=== PATIENT | female | born 1955 | race Hispanic/Latino ===

== ENCOUNTER 2023-12-08 06:23 | Day surgery (SDC) | payer OTHER ==
[2023-12-03 12:15] VITALS: PULSE 73; RESP 18
[2023-12-03 12:35] LABS: BASOPHILS # (AUTO) 0.05 K/uL (0.00-0.20); BASOPHILS % (AUTO) 0.9 % (0.0-5.0); EOSINOPHILS # (AUTO) 0.11 K/uL (0.00-0.70); EOSINOPHILS % (AUTO) 1.9 % (0.0-8.0); HEMATOCRIT 39.2 % (36-48); IMMATURE GRANULOCYTE ABSOLUTE 0.01 K/uL (0-1); LYMPHOCYTES # (AUTO) 1.9 K/uL (1.0-4.8); LYMPHOCYTES % (AUTO) 32.2 % (21.0-51.0); MEAN CORPUSCULAR HEMOGLOBIN 32.5 pg (27.0-33.0); MEAN CORPUSCULAR HGB CONC 33.2 g/dL (32.0-36.0); MONOCYTES # (AUTO) 0.4 K/uL (0.1-1.0); MONOCYTES % (AUTO) 7.7 % (3.0-13.0); NEUTROPHILS # (AUTO) 3.3 K/uL (1.8-7.7); NEUTROPHILS % (AUTO) 57.1 % (40.0-77.0); PLATELET COUNT (AUTO) 252 K/uL (130-400); RED CELL DISTRIBUTION WIDTH 12.2 % (11.0-15.5); WHITE BLOOD COUNT (AUTO) 5.8 K/uL (4.8-10.8)
[2023-12-03 12:44] LABS: INR <= 0.93 (0.85-1.15); PROTHROMBIN TIME 10.3 SEC (9.6-11.6)
[2023-12-03 12:45] LABS: PARTIAL THROMBOPLASTIN TIME 27.8 SEC (26.3-35.5)
[2023-12-03 12:57] LABS: CREATININE 0.7 mg/dL (0.5-1.5)
[~2023-12-08] VITALS: Ht 165.1 cm; Wt 72.8 kg
[2023-12-08] VITALS (18 sets, daily range): BP systolic 100–191; BP diastolic 47–93; PULSE 54–66; RESP 12–18
[~2023-12-08 06:23] MED LIST: RAMI2.5C55 PO
[2023-12-08] MEDS ORDERED: LIDOCAINE PF 100MG/5ML (2%) SYRINGE 5ML ONE (07:21)
[2023-12-08] MEDS ORDERED: MIDAZOLAM HCL 1 MG/ML 2ML VIAL ONE (07:21)
[2023-12-08] MEDS ORDERED: PROPOFOL 10 MG/ML 20ML VIAL IV ONE (07:21)
[2023-12-08] MEDS ORDERED: FENTANYL CITRATE PF 50 MCG/1 ML 2ML VIAL ONE (07:22)
[2023-12-08] MEDS ORDERED: PHENYLEPHRINE HCL 10 MG/ML 1ML VIAL IV ONE (07:23)
[2023-12-08] MEDS ORDERED: DEXAMETHASONE SOD PHOSPHATE 10MG/ML 1ML VIAL ONE (07:23)
[2023-12-08] MEDS ORDERED: ONDANSETRON 4MG INJ ONE (07:23)
[2023-12-08] MEDS ORDERED: BUPIVACAINE/PF 0.5% 30ML VIAL ONE (07:32)
[2023-12-08] MEDS: LACTATED RINGERS 1000ML 1,000 ML IV ONE (07:43)
[2023-12-08] MEDS: CEFAZOLIN SODIUM 2 GM VIAL ONE (07:43)
[2023-12-08] MEDS: CEFAZOLIN SODIUM 2 GM VIAL IVPB ONE (08:10)
[2023-12-08] MEDS: BUPIVACAINE/PF 0.5% 30ML VIAL INJ ONE (08:20)
[2023-12-08] MEDS ORDERED: TRAM50TA4 PO (08:27)
[2023-12-08] MEDS ORDERED: DOCU-116 PO (08:27)
== END 2023-12-08 10:23 | disposition home or self-care (01) ==
LOC: DAH 06:23
PROVIDERS: ATTEND Surgery
DX: Z45.2 Encounter for adjustment and management of vascular access device (principal); Z79.01 Long term (current) use of anticoagulants; Z85.3 Personal history of malignant neoplasm of breast; Z79.899 Other long term (current) drug therapy; Z92.21 Personal history of antineoplastic chemotherapy
CPT/HCPCS: 80048; 85025; 85610; 85730; 36415; 93005; 36590; A6260; A4663; A4344; J7120; J3010; J1100; J2001; J2250; J2704; J2405; J0665 ×2; J2371; J0690 ×2; A4215; A4223; A4222; A4221; A4600; G0168; J3490